=== PATIENT | female | born 1990 | race Caucasian/White ===

== ENCOUNTER 2019-07-27 16:29 | Emergency (ER) | payer OTHER ==
[~2019-07-27] VITALS: Ht 180.3 cm; Wt 63.5 kg
[2019-07-27 16:45] VITALS: BP 121/74
--- NOTE | 2019-07-27 17:39 | NUR ---
Patient discharged to home in stable condition. Written and verbal after care instructions given. Patient verbalizes understanding of instruction.
== END 2019-07-27 17:40 | disposition home or self-care (01) ==
LOC: ER 16:29
DX: M54.2 Cervicalgia (principal); M54.9 Dorsalgia, unspecified; F41.9 Anxiety disorder, unspecified; V49.49XA Driver injured in collision with other motor vehicles in traffic accident, initial encounter; Y93.89 Activity, other specified; Y92.413 State road as the place of occurrence of the external cause; Y99.8 Other external cause status